=== PATIENT | male | born 1960 | race Caucasian/White ===

== ENCOUNTER 2018-04-18 10:36 | Outpatient (CLI) | payer OTHER ==
--- NOTE | 2018-04-18 12:41 | MRI ---
MRI LUMBAR SPINE WITHOUT CONTRAST: TECHNIQUE: Multiplanar, multisequential imaging of the lumbar spine obtained. INDICATION: Lumbar radiculopathy. FINDINGS: The lumbar vertebrae maintain normal height and alignment. Disk spaces are maintained. Vertebral kalpana dy signal is normal. At T12-L1 and at L1-2, no disk bulge. Mild facet arthrosis. No central canal or foraminal stenosis. At L2-3, very mild disk bulge abuts the thecal sac. No central canal or foraminal stenosis. At L3-4, minimal disk bulge. Mild facet arthrosis. No significant central canal or foraminal stenos is. At L4-5, very mild disk bulge abuts and mildly flattens the anterior thecal sac. Mild facet hypertro phy. No significant central canal or foraminal stenosis. There is mild asymmetric disk bulge to the right at this level with mild foraminal encroachment; however, no evidence of contact or displacemen t of the exiting L4 nerve root. This could potentially be significant with weight bearing. At L5-S1, very mild disk bulge abuts the thecal sac. Mild facet hypertrophy. No significant central canal or foraminal stenosis. IMPRESSION: 1. Mild asymmetric disk bulge to the right at L4-5 encroaches into the remnant and laterally on the right and may contact the exiting right L4 nerve root as described above. 2. Otherwise, no significant disk bulge or protrusion and no significant central canal stenosis. POS: [facility]
== END 2018-04-18 10:37 | disposition home or self-care (01) ==
LOC: TBSIIMAG 10:36
PROVIDERS: ATTEND Family Medicine
DX: M51.16 Intervertebral disc disorders with radiculopathy, lumbar region (principal); M51.87 Other intervertebral disc disorders, lumbosacral region
CPT/HCPCS: 72148

== ENCOUNTER 2020-09-08 15:14 | Outpatient (CLI) | payer OTHER ==
--- NOTE | 2020-09-08 15:32 | RAD ---
XR Foot Rt 3 View STANDARD HISTORY: Right foot pain FINDINGS: No fracture or dislocation is identified. Degenerative changes are seen most prominent in the first M TP joint. Calcaneal spurs are present.
== END 2020-09-08 15:15 | disposition home or self-care (01) ==
LOC: BICRAD 15:14
PROVIDERS: ATTEND Family Medicine
DX: M79.671 Pain in right foot (principal)

== ENCOUNTER 2020-09-17 15:33 | Outpatient (CLI) | payer OTHER ==
--- NOTE | 2020-09-17 16:10 | RAD ---
Right foot 3 views: 09/17/2020 COMPARISON: 09/08/2020 HISTORY: Recent injury, persistent pain FINDINGS: There is prominent enthesophyte formation at the origin of the plantar aponeurosis and the insertion of the Achilles tendon, unchanged when compared to the prior exam. There is stable tibiotalar joint space narrowing and tarsal degenerative change with dorsal osteophyte formation on t he lateral examination. There is no displaced fracture or evidence of dislocation. There are degenerative changes involving the first metatarsal-phalangeal joint. IMPRESSION: No acute findings-stable appearance of the right foot. Given persistent pain following tr auma, follow-up MRI may be beneficial to evaluate for soft tissue injury or radio-occult fracture.
== END 2020-09-17 15:34 | disposition home or self-care (01) ==
LOC: BICRAD 15:33
PROVIDERS: ATTEND Family Medicine
DX: M79.671 Pain in right foot (principal)

== ENCOUNTER 2020-10-02 07:33 | Outpatient (CLI) | payer OTHER ==
--- NOTE | 2020-10-02 09:42 | MRI ---
MRI OF THE RIGHT ANKLE WITHOUT CONTRAST: INDICATION: A 60-year-old male with right foot pain predominantly in the lateral ankle with swelling of the mid f oot after jumping off a truck bed 1 month ago. COMPARISON: Prior radiograph of the right foot dated 09/27/2020. FINDINGS: There is a nondisplaced fracture involving the inferolateral aspect of the cuboid that was radiograph ically occult. This is an obliquely oriented fracture extending through the cuboid. No additional m id foot fracture is evident. Lisfranc ligament is intact. There are some mild degenerative changes involving the mid foot and for efoot. A small subchondral cyst-like abnormality is seen involving the base of the 4th metatarsal wh ich is nonspecific and may be degenerative in nature. There is a chronic full-thickness tear involving the ATFL and calcaneofibular ligaments. The posteri or talofibular and syndesmotic ligaments appear intact. There is a chronic partial-thickness tear in volving the deep deltoid ligament. Visualized aspects of the spring ligament appear intact. No oste ochondral defect is evident involving the talar dome. The medial flexor tendons appear within normal limits. A small amount of fluid is seen within the FH L tendon sheath at the level of the knot of Popeye. There is a partial-thickness split tear involving the peroneus brevis tendon at the level of the lateral malleolus extending through the lateral malle olus extending through the lateral retinaculum with peroneal tenosynovitis. Peroneus longus is intac t. The Achilles tendon is intact. The extensor tendons are intact. There is enthesopathic change off the posterior and plantar calcaneus. The visualized sinus tarsi wong s a normal appearance. The visualized plantar fascia demonstrates some moderate increased T2 signal near its plantar calcaneal attachment consistent with changes of mild plantar fasciitis. IMPRESSION: 1. Nondisplaced inferior and lateral cuboid fracture. 2. 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 Partial th ickness chronic tear of the deep deltoid ligament. 3. Partial thickness split tear of the peroneus brevis tendon from the level of the lateral malleolu s through the level of the lateral retinaculum with peroneal tenosynovitis. Mild FHL tenosynovitis a t the Knot of Popeye. 4. Scattered mid foot and forefoot osteoarthrosis. 5. Moderate plantar fasciitis at the level of the plantar calcaneus. POS: [facility]
== END 2020-10-02 07:34 | disposition home or self-care (01) ==
LOC: BICMRI 07:33
PROVIDERS: ATTEND Podiatrist
DX: M79.671 Pain in right foot (principal); G89.29 Other chronic pain; M77.51 Other enthesopathy of right foot and ankle; S99.822A Other specified injuries of left foot, initial encounter; S92.214A Nondisplaced fracture of cuboid bone of right foot, initial encounter for closed fracture; S93.411A Sprain of calcaneofibular ligament of right ankle, initial encounter; S93.491A Sprain of other ligament of right ankle, initial encounter; S93.421A Sprain of deltoid ligament of right ankle, initial encounter; M65.871 Other synovitis and tenosynovitis, right ankle and foot; M19.071 Primary osteoarthritis, right ankle and foot; M72.2 Plantar fascial fibromatosis; S96.811A Strain of other specified muscles and tendons at ankle and foot level, right foot, initial encounter

== ENCOUNTER 2022-05-04 13:48 | Outpatient (CLI) | payer OTHER ==
[2022-05-04 14:45] LABS: #Eosinphils 0.1 10x3/uL (0.0-0.5); #Monocytes 0.7 10x3/uL (0.0-1.1); %Basophils 0.6 % (0.0-2.0); %Eosinophils 2.7 % (0.0-6.0); %Monocytes 14.2 % (0.0-10.0); %Neutrophils 62.1 % (40.0-75.0); Hemoglobin 15.1 g/dL (13.5-17.5); Mean Corpuscular HGB CONC 34.7 g/dL (32.0-36.0); Mean Corpuscular Hemoglobin 30.4 pg (27.0-33.0); Mean Corpuscular Volume 87.7 fl (81.2-95.1); Mean Platelet Volume 9.8 fl (7.4-10.4); Platelet Count 157 10x3/uL (150-450); RBC Distribution Width 12.8 % (11.5-14.5); Red Blood Cell (RBC) Count 4.96 10x6/uL (4.32-5.72); White Blood Cell (WBC) Count 4.8 10x3/uL (3.5-10.5)
[2022-05-04 14:58] LABS: Anion Gap 17 mmol/L (10-20); BUN (Urea Nitrogen) 21 mg/dL (8.4-25.7); Calc. Creatinine Clearance 0 mL/min (70-130); Calcium 9.4 mg/dL (7.8-10.44); Carbon Dioxide 22 mmol/L (23-31); Chloride 103 mmol/L (98-107); Glucose 115 mg/dL (80-115); Potassium 3.7 mmol/L (3.5-5.1); Sodium 138 mmol/L (136-145)
== END 2022-05-04 13:49 | disposition home or self-care (01) ==
LOC: LABBT 13:48
PROVIDERS: ATTEND Surgery
DX: U07.1 COVID-19 (principal); Z01.818 Encounter for other preprocedural examination; K40.90 Unilateral inguinal hernia, without obstruction or gangrene, not specified as recurrent
CPT/HCPCS: 80048; 85025; 93005; 93010; U0003; U0005

== ENCOUNTER 2022-05-05 09:49 | Outpatient (CLI) | payer OTHER | END 2022-05-05 09:50 | disposition home or self-care (01) | LOC: LABBT 09:49 | PROVIDERS: ATTEND Surgery | DX: U07.1 COVID-19 (principal) | CPT/HCPCS: U0003; U0005 ==

== ENCOUNTER 2022-05-25 08:03 | Day surgery (SDC) | payer OTHER ==
[2022-05-04 13:50] VITALS: BMI 34.2
[2022-05-25] MEDS ORDERED: Lidocaine 1% MPF 2 ML VIAL ONE (08:48)
[2022-05-25] MEDS ORDERED: Midazolam HCl 2 mg/2 ml Vial ONE (10:58)
[2022-05-25] MEDS ORDERED: fentaNYL Citrate/PF 100 MCG/2 ML SYRINGE ONE (11:35)
[2022-05-25] MEDS ORDERED: SUGAMMADEX SODIUM 200 MG/2 ML VIAL ONE (11:35)
[2022-05-25] MEDS ORDERED: Bupivacaine 0.25% HCL 30 ML VIAL ONE (11:40)
[2022-05-25] MEDS ORDERED: Lidocaine 1% w/Epinephrine 1:100K 20 ML VIAL ONE (11:40)
[2022-05-25] MEDS ORDERED: CEFAZOLIN 2 GM VIAL ONE (11:48)
[2022-05-25] MEDS ORDERED: Sodium Chloride 0.9% 100 ML ONE (11:49)
[2022-05-25] MEDS ORDERED: Rocuronium Bromide 10 MG/ML (10ML VIAL) ONE (12:02)
[2022-05-25] MEDS ORDERED: Ketorolac Tromethamine 30 MG/ML VIAL ONE (12:02)
[2022-05-25] MEDS ORDERED: PROPOFOL 200 MG/20 ML VIAL ONE (12:02)
[2022-05-25] MEDS ORDERED: Dexamethasone 20 MG/5 ML VIAL ONE (12:02)
[2022-05-25] MEDS ORDERED: Ondansetron PF 4 MG/2 ML Vial ONE (12:02)
[2022-05-25] MEDS ORDERED: Lidocaine 1% PF 5 ML VIAL ONE (12:02)
[2022-05-25] MEDS ORDERED: Glycopyrrolate 0.2 MG/ML 5 ML SYRINGE ONE (12:02)
[2022-05-25] MEDS ORDERED: HYDROcodone/Acetaminophen 5/325 mg Tablet ONE (14:47)
== END 2022-05-25 16:20 | disposition home or self-care (01) ==
LOC: SDC 08:03
PROVIDERS: ATTEND Surgery
PROC: 0YUA4JZ Supplement Bilateral Inguinal Region with Synthetic Substitute, Percutaneous Endoscopic Approach (ICD-10-PCS; principal; 2022-05-25)
PROC: 8E0W4CZ Robotic Assisted Procedure of Trunk Region, Percutaneous Endoscopic Approach (ICD-10-PCS; principal; 2022-05-25)
DX: K40.20 Bilateral inguinal hernia, without obstruction or gangrene, not specified as recurrent (principal); I10 Essential (primary) hypertension; E78.5 Hyperlipidemia, unspecified; J43.9 Emphysema, unspecified; Z79.899 Other long term (current) drug therapy
CPT/HCPCS: C1781; J0690; J1100; J1885; J2250; J2405; J2704; J2710; J3490; S0020

== ENCOUNTER 2024-03-21 10:19 | Outpatient (CLI) | payer OTHER | END 2024-03-21 10:20 | disposition home or self-care (01) | LOC: BICRAD 10:19 | PROVIDERS: ATTEND Internal Medicine Cardiovascular Disease | DX: R06.02 Shortness of breath (principal); I25.10 Atherosclerotic heart disease of native coronary artery without angina pectoris; J98.4 Other disorders of lung | CPT/HCPCS: 71046 ==